=== PATIENT | female | born 1955 | race Caucasian/White ===

== ENCOUNTER 2016-12-12 19:30 | Emergency (ER) | payer OTHER ==
[~2016-12-12] VITALS: Ht 162.6 cm; Wt 83.9 kg
[2016-12-12 19:56] VITALS: BP 180/98
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
[2016-12-12] MEDS ORDERED: CYCL10TA2 PO (21:32)
== END 2016-12-12 21:56 | disposition home or self-care (01) ==
LOC: ER 19:30
DX: S13.9XXA Sprain of joints and ligaments of unspecified parts of neck, initial encounter (principal); E78.00 Pure hypercholesterolemia, unspecified; I10 Essential (primary) hypertension; M19.90 Unspecified osteoarthritis, unspecified site; K21.9 Gastro-esophageal reflux disease without esophagitis; Z88.1 Allergy status to other antibiotic agents; V87.7XXA Person injured in collision between other specified motor vehicles (traffic), initial encounter; Y93.I9 Activity, other involving external motion; Y92.488 Other paved roadways as the place of occurrence of the external cause; Y99.8 Other external cause status
CPT/HCPCS: 72125; 99284-25

== ENCOUNTER 2018-02-16 20:30 | Emergency (ER) | payer OTHER ==
[~2018-02-16] VITALS: Ht 162.6 cm; Wt 83.9 kg
[~2018-02-16 20:30] MED LIST: CYCL10TA2 PO
[2018-02-16] MEDS ORDERED: ONDANSETRON PF 4 MG/2 ML VIAL. IV ONE (21:00)
[2018-02-16] MEDS ORDERED: fentaNYL PF VIAL 100 MCG/2 ML VIAL IV ONE (21:00)
--- NOTE | 2018-02-16 21:11 | PHYS DOC ---
Past Medical History Past Medical History: Arthritis, GERD, High Cholesterol, Hypertension Past Surgical History: Hysterectomy Alcohol Use: Rarely Drug Use: None Adult General Chief Complaint Chief Complaint: WRIST PAIN HPI HPI Patient is a 63-year-old female who presents with report of left wrist injury. Patient had been out walking this evening when she tripped and fell on outstretched hand. Patient has obvious deformity to the wrist. She rates her pain to be about a 7 out of 10. She denies any other injuries and had no loss of consciousness. Patient states that pain is worsened with movement of the wrist or with palpation. She states that remaining still improves the pain somewhat. Patient states that her last meal was about 4 PM. Injury occurred approximately 30 minutes prior to arrival to the emergency room. Review of Systems Review of Systems Constitutional: Denies fever or chills [] Respiratory: Denies cough or shortness of breath [] Cardiovascular: No additional information not addressed in HPI [] Musculoskeletal: Complains of left wrist pain[] Integument: Denies rash or skin lesions [] Neurologic: Denies headache, focal weakness or sensory changes [] All other systems were reviewed and found to be within normal limits, except as documented in this note. Current Medications Current Medications Current Medications Medications (Trade) Dose Ordered Sig/Víctor Start Time Stop Time Status Last Admin Dose Admin Fentanyl Citrate (Fentanyl 2ml Vial) 50 mcg 1X ONCE 02/16/18 21:00 02/16/18 21:01 DC 02/16/18 22:01 50 MCG Ketorolac Tromethamine (Toradol 30mg Vial) 30 mg 1X ONCE 02/16/18 22:00 02/16/18 22:01 DC 02/16/18 22:03 30 MG Ondansetron HCl (Zofran) 4 mg 1X ONCE 02/16/18 21:00 02/16/18 21:01 DC 02/16/18 22:02 4 MG Propofol 20 ml @ 0 mls/hr 1X ONCE 02/16/18 21:30 02/16/18 21:31 DC 02/16/18 22:01 70 MLS/HR Allergies Allergies Allergies Coded Allergies Type Severity Reaction Last Updated Verified tetracycline Allergy Intermediate Rash 12/12/16 Yes Physical Exam Physical Exam Constitutional: Well developed, well nourished, no acute distress, non-toxic appearance. [] HENT: Normocephalic, atraumatic, bilateral external ears normal, oropharynx moist, no oral exudates, nose normal. Soft palate is visible with only base of uvula visible. [] Eyes: PERRLA, EOMI, conjunctiva normal, no discharge. [] Neck: Normal range of motion, no tenderness, supple, no stridor. [] Cardiovascular:Heart rate regular rhythm [] Lungs & Thorax: Bilateral breath sounds clear to auscultation [] Abdomen: Bowel sounds normal, soft. [] Skin: Warm, dry, no erythema, no rash. [] Extremities: Left wrist demonstrates moderate soft tissue swelling with obvious deformity with convexity to the dorsal aspect of the wrist. [] Neurologic: Alert and oriented X 3, normal motor function, normal sensory function, no focal deficits noted. [] Current Patient Data Vital Signs Vital Signs Date Time Temp Pulse Resp B/P (MAP) Pulse Ox O2 Delivery O2 Flow Rate FiO2 02/16/18 22:16 98.5 80 18 167/79 (108) 98 Room Air 98.5 02/16/18 21:48 2.0 2.0 2.0 EKG EKG [] Radiology/Procedures Radiology/Procedures [] Impressions: X-ray of the left wrist demonstrates a distal radius fracture with mild displacement and volar angulation of approximately 35-40. Postreduction images demonstrate markedly improved bony alignment which is near anatomical. Course & Med Decision Making Course & Med Decision Making Pertinent Labs and Imaging studies reviewed. (See chart for details) Procedural Sedation: Pre-assessment performed. See preceding complete history and physical for details. Time out performed. See sedation documentation for details. Medication(s): Propofol Complications: No hypoxic or apneic events Recovered without incident. Greater than 15 minutes of face to face time included in sedation and recovery. Reduction by me: Anesthesia: Propofol Location: Left distal radius Technique: Gentle traction and manipulation Results: Mormonism of near normal anatomic positioning Neurovascularly intact post procedure. A sugar tong splint was placed by ER physician and nurse. Splint Assessment: Neurovascularly intact post splint placement with good fit. Dragon Disclaimer Dragon Disclaimer This electronic medical record was generated, in whole or in part, using a voice recognition dictation system. Departure Departure Impression: Primary Impression: Distal radius fracture, left Disposition: 01 HOME, SELF-CARE Condition: STABLE Referrals: MACIEJ STEWARD MD (PCP) GERA BETANCUR MD Patient Instructions: Wrist Fracture Scripts Hydrocodone Bit/Acetaminophen (HYDROCODONE-APAP 7.5-325 ) 1 Each Tablet 1 TAB PO PRN Q6HRS PRN for PAIN, #15 TAB 0 Refills Prov: JL MONTANA Jr. DO 02/16/18 Problem Qualifiers Primary Impression: Distal radius fracture, left Encounter type: initial encounter Fracture type: closed Fracture morphology : other intra-articular Qualified Codes: S52.572A - Other intraarticular fracture of lower end of left radius, initial encounter for closed fracture JL MONTANA Jr. DO Feb 16, 2018 21:11
[2018-02-16] MEDS ORDERED: PROPOFOL 20 ML IV ONE (21:30)
[2018-02-16] MEDS ORDERED: KETOROLAC 30 MG/ML VIAL. IV ONE (22:00)
[2018-02-16] MEDS ORDERED: HYDR-2762 PO (22:49)
[2018-02-16 22:54] VITALS: BP 123/58
[2018-02-16] MEDS ORDERED: HYDROcodone/APAP 7.5/325MG 1 TAB TABLET PO ONE (23:00)
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
== END 2018-02-16 23:13 | disposition home or self-care (01) ==
LOC: ER 20:30
DX: S52.572A Other intraarticular fracture of lower end of left radius, initial encounter for closed fracture (principal); K21.9 Gastro-esophageal reflux disease without esophagitis; E78.00 Pure hypercholesterolemia, unspecified; I10 Essential (primary) hypertension; Z88.8 Allergy status to other drugs, medicaments and biological substances; W01.0XXA Fall on same level from slipping, tripping and stumbling without subsequent striking against object, initial encounter; Y93.89 Activity, other specified; Y92.89 Other specified places as the place of occurrence of the external cause; Y99.8 Other external cause status
CPT/HCPCS: 25605; 73100; 73110; 96374; 96375; 99285; J1885; J2405; J2704; J3010

== ENCOUNTER 2018-02-17 18:47 | Emergency (ER) | payer OTHER ==
[~2018-02-17] VITALS: Ht 162.6 cm; Wt 83.9 kg
[~2018-02-17 18:47] MED LIST changes: +HYDR-2762 PO
[2018-02-17 19:00] VITALS: BP 148/109
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
== END 2018-02-17 19:45 | disposition home or self-care (01) ==
LOC: ER 18:47
DX: S40.022A Contusion of left upper arm, initial encounter (principal); E78.00 Pure hypercholesterolemia, unspecified; K21.9 Gastro-esophageal reflux disease without esophagitis; I10 Essential (primary) hypertension; Z88.8 Allergy status to other drugs, medicaments and biological substances; W18.39XA Other fall on same level, initial encounter; Y93.89 Activity, other specified; Y92.89 Other specified places as the place of occurrence of the external cause; Y99.8 Other external cause status
CPT/HCPCS: 99281